=== PATIENT | female | born 1965 | race Caucasian/White ===

== ENCOUNTER 2019-01-08 08:38 | Day surgery (SDC) | payer BC ==
[~2019-01-08] VITALS: Ht 165.1 cm; Wt 122.8 kg
[2019-01-08] VITALS (7 sets, daily range): BP systolic 108–144; BP diastolic 62–79; PULSE 65–73; TEMP 97.2–98
[2019-01-08] MEDS ORDERED: SYNTHROID0.1 MG/TAB PO (10:10)
[2019-01-08] MEDS ORDERED: PRINIVIL40 MG PO (10:11)
[2019-01-08] MEDS ORDERED: NORVASC 5MG5 MG/TAB PO (10:12)
[2019-01-08] MEDS ORDERED: LASIX 40MG TABL40 MG PO (10:12)
[2019-01-08] MEDS ORDERED: CALTRATE-600 W600 MG PO (10:13)
[2019-01-08] MEDS ORDERED: LEXAPRO 10MG10 MG PO (10:13)
[2019-01-08] MEDS ORDERED: WOMEN'S DAILY1 TAB PO (10:14)
[2019-01-08] MEDS ORDERED: K-TAB10 PO (10:16)
[2019-01-08] MEDS ORDERED: STOOL SOFTENER100 M2 PO (10:19)
[2019-01-08] MEDS ORDERED: PROBIOTIC FORMU1 CAP PO (10:19)
[2019-01-08] MEDS ORDERED: PRILOSEC 20MG20 MG PO (10:20)
[2019-01-08] MEDS ORDERED: TUMS500 MG PO (10:21)
[2019-01-08] MEDS ORDERED: SINUS RINSE NAS (10:23)
[2019-01-08] MEDS ORDERED: FLONASE NASAL S16 GM NS (10:25)
[2019-01-08] MEDS ORDERED: OMNICEF 300MG300 MG PO (10:26)
[2019-01-08] MEDS ORDERED: LEVAQUIN 750MG750 M1 PO (10:28)
[2019-01-08] MEDS ORDERED: ZOFRAN ODT4 MG PO (10:28)
--- NOTE | 2019-01-08 10:29 | NUR ---
Patient admitted to room 6 at 0900 and is resting on cart awaiting surgery.
--- NOTE | 2019-01-08 12:25 | NUR ---
Patient returns to room 6 per cart from PACU and is awake and alert. Taking juice and water. Temp 98 and sats 98% on 2L per nasal cannula. IV fluids infusing #20G LW. Siderails up x2 and call light in reach. Allowed to rest. Friend in room. Denies pain or nausea.
--- NOTE | 2019-01-08 12:40 | NUR ---
Resting and continues to deny pain or nausea.
--- NOTE | 2019-01-08 12:55 | NUR ---
Eating toast and drinking water. Denies nausea.
--- NOTE | 2019-01-08 13:10 | NUR ---
Talking with friend and becoming more awake.
--- NOTE | 2019-01-08 13:25 | NUR ---
Continues to deny nausea. States that she feels ready to use the restroom. IV to INT. Ambulatory across the hallway to the bathroom. Gait steady.
--- NOTE | 2019-01-08 13:35 | NUR ---
IV discontinued and patient was able to void. Given Percocet 5mg one tab in preparation for discharge and two hour car ride home. Continued to deny nausea. Given dismissal instructions and voices understanding of these. Provided scripts for Trivoli, Pyridium, and Omnicef. Instructed to force fluids and provided office number for questions and concerns.
--- NOTE | 2019-01-08 13:50 | NUR ---
Dismissal instructions signed and patient dismissed to home per private vehilce driven by friend with instructions in hand. Taken to the front door per wheelchair and assisted into car with instructions in hand.
== END 2019-01-08 14:50 | disposition home or self-care (01) ==
LOC: SDCO 08:38
DX: N20.1 Calculus of ureter (principal); K21.9 Gastro-esophageal reflux disease without esophagitis; E06.3 Autoimmune thyroiditis; I10 Essential (primary) hypertension; E03.9 Hypothyroidism, unspecified; D35.2 Benign neoplasm of pituitary gland; Z90.49 Acquired absence of other specified parts of digestive tract; Z88.2 Allergy status to sulfonamides; Z90.710 Acquired absence of both cervix and uterus; E66.01 Morbid (severe) obesity due to excess calories
CPT/HCPCS: C1769; C2617; J0690; J0696; J1100; J1885; J2405; J2704; J3010; J7120; Q9967

== ENCOUNTER 2019-01-14 05:40 | Day surgery (SDC) | payer BC ==
[2019-01-14] VITALS (7 sets, daily range): BP systolic 97–148; BP diastolic 61–82; PULSE 74–87; TEMP 98.9
[~2019-01-14] VITALS: Ht 165.1 cm; Wt 124.4 kg
[~2019-01-14 05:40] MED LIST: CALTRATE-600 W600 MG PO; FLONASE NASAL S16 GM NS; K-TAB10 PO; LASIX 40MG TABL40 MG PO; LEVAQUIN 750MG750 M1 PO; LEXAPRO 10MG10 MG PO; NORVASC 5MG5 MG/TAB PO; OMNICEF 300MG300 MG PO; PRILOSEC 20MG20 MG PO; PRINIVIL40 MG PO; PROBIOTIC FORMU1 CAP PO; SINUS RINSE NAS; STOOL SOFTENER100 M2 PO; SYNTHROID0.1 MG/TAB PO; TUMS500 MG PO; WOMEN'S DAILY1 TAB PO; ZOFRAN ODT4 MG PO
--- NOTE | 2019-01-14 06:30 | NUR ---
ADMITTED TO ROOM 8 AT 0543 AND IS AWAITING SURGERY. IV INFUSING AND CALL LIGHT IN REACH.
--- NOTE | 2019-01-14 10:10 | NUR ---
Patient returns to room 8 per cart from PACU and is awake and alert. Temp 98.5 and sats 93% on 2L per nasal cannula. IV fluids infusing #20G LW. Siderails up x2 and call light in reach. Denies pain or nausea. Given water to drink. Friend at side.
--- NOTE | 2019-01-14 10:25 | NUR ---
Patient taking water and juice. Remains on oxygen at 2L per nasal cannula. Talking with friend.
[2019-01-14] MEDS ORDERED: PYRIDIUM 100MG100 MG PO (10:30)
[2019-01-14] MEDS ORDERED: NORCO 325 MG-51 TAB PO (10:31)
--- NOTE | 2019-01-14 10:40 | NUR ---
Eating toast and drinking tea. Continues to deny pain or nausea. Oxygen removed and room air sats maintain 98%.
--- NOTE | 2019-01-14 10:55 | NUR ---
Continues to deny pain or nausea.
--- NOTE | 2019-01-14 11:03 | NUR ---
Assisted up to the bathroom. Gait steady.
--- NOTE | 2019-01-14 11:05 | NUR ---
Returns to room and IV discontinued. Site is free of redness or swelling.
--- NOTE | 2019-01-14 11:20 | NUR ---
Given dismissal instructions and voices understanding of these. Provided scripts for Pyridium and Maljamar. Instructed that the office will call with follow up appointment date and time.
--- NOTE | 2019-01-14 11:27 | NUR ---
Patient dismissed to home per private vehicle driven by friend and taken to the front door per wheelchair and assisted into car with instructions in hand.
== END 2019-01-14 11:27 | disposition home or self-care (01) ==
LOC: SDCO 05:40
DX: N20.0 Calculus of kidney (principal); K21.9 Gastro-esophageal reflux disease without esophagitis; E06.3 Autoimmune thyroiditis; I10 Essential (primary) hypertension; E03.9 Hypothyroidism, unspecified; Z79.899 Other long term (current) drug therapy; K57.92 Diverticulitis of intestine, part unspecified, without perforation or abscess without bleeding; Z86.39 Personal history of other endocrine, nutritional and metabolic disease; Z90.49 Acquired absence of other specified parts of digestive tract; Z80.0 Family history of malignant neoplasm of digestive organs; Z82.3 Family history of stroke
CPT/HCPCS: C1769; C1894; C2617; J0330; J1100; J1885; J2405; J2704; J3010; J7120